=== PATIENT | male | born 1960 | race Caucasian/White ===

== ENCOUNTER 2018-09-05 06:58 | Emergency (ER) | payer BC ==
[2018-09-05 07:22] LABS: BASO % 0.4 % (0-6); EOS % 1.8 % (0-6); GRAN % 43.5 % (47-80); HEMATOCRIT 42.6 % (42.0-52.0); HEMOGLOBIN 15.5 gm/dl (14.0-18.0); LYMPH % 40.1 % (16-45); MEAN CELL VOLUME 100.7 fl (81-97); MEAN CORPUSCULAR HEMOGLOBIN 36.6 pg (27-33); MEAN CORPUSCULAR HGB CONC 36.4 g/dl (32-36); MEAN PLATELET VOLUME 9.1 fl (7.4-10.4); MONO % 14.2 % (0-9); PLATELET COUNT 197 K/uL (130-400); RED BLOOD COUNT 4.23 M/uL (4.40-5.70); RED CELL DISTRIBUTION WIDTH 12.1 % (11.5-14.5); WHITE BLOOD COUNT W/O DIFF 6.7 K/uL (4.2-12.2)
[2018-09-05 07:23] LABS: BLOOD UREA NITROGEN 5 mg/dL (6-20); CREATININE 0.8 mg/dL (0.7-1.2); EST GLOMERULAR FILTRATION RATE > 60 mL/min
[2018-09-05 07:24] LABS: TOTAL PROTEIN 7.4 g/dL (6.6-8.7)
[2018-09-05 07:25] LABS: INR 1.1; PARTIAL THROMBOPLASTIN TIME 27.1 SECONDS (24.5-39.1); PROTHROMBIN TIME (PATIENT) 10.8 SECONDS (9.5-12.1)
[2018-09-05 07:26] LABS: GLUCOSE,RANDOM 108 mg/dL (74-109)
[2018-09-05 07:29] LABS: ALB/GLOB RATIO 1.3 (1.1-1.8); ALBUMIN 4.2 g/dL (4.0-5.0); ALKALINE PHOSPHATASE 64 U/L (40-129); ALT/SGPT 59 U/L (<41); AST/SGOT 60 U/L (10.0-50.0)
--- NOTE | 2018-09-05 07:34 | Emergency Department Record ---
History of Present Illness - General Chief complaint: Fatigue and Weakness Stated complaint: "THINKS HE HAD A STROKE" Time Seen by Provider: 09/05/18 07:01 Source: Patient, Family Mode of Arrival: Ambulatory Limitations: No limitations - History of Present Illness Initial comments: 57 yo male presents feeling tired and weak since Wednesday. He and his present with concerns that he is sleeping more, tired, intermittent headache with left ear pain. His left ear has drainage for months. No current headache. The headache seems to occur with coughing. No fever, chills, nausea , vomiting, changes in appetite, dizziness, vision changes, speech changes, coordination changes, or confusion. He has had a few episodes where he had trouble recalling people's names (non family, non close relationships) and had to look on Facebook. No nausea, vomiting, diarrhea. No chest pain or shortness of breath. He and his were concerned because he is usually very active and energetic. Sleeping more and being fatigued are unusual. No expressive or receptive aphasia symptoms. The has not witnessed speech, vision, coordination, verbal expression, confusion issues). He has had chronic left ear drainage for years and a rash in upper glutteal fold for years. No PCP anytime in his lifetime. Additionally, he states he has a job that is very stressful currently and overwhelming at times. He feels a lot of his symptoms would resolve if he could just "chill out for a while" and relax. Complaint: Generalized weakness Onset/Timin -: Days(s) Location: Generalized Severity: Mild Consistency: Intermittent Improves with: None Worsens with: None Context: Other (Stress) Associated Symptoms: Headaches - Hubertus Coma Scale Eye Response: (4) Open spontaneously Motor Response: (6) Obeys commands Verbal Response: (5) Oriented Hubertus Total: 15 - Symptoms of Stroke Onset of Symptoms Date: 09/02/18 Symptoms of stroke: Unable to Think Clearly - Related Data Home Medications Medication Instructions Recorded Confirmed Last Taken No Home Med [NO HOME MEDS] 09/05/18 09/05/18 Unknown Allergies Allergy/AdvReac Type Severity Reaction Status Date / Time No Known Drug Allergies Allergy Verified 09/05/18 07:05 Travel Screening - Travel/Exposure Within Last 30 Days Have you traveled within the last 30 days?: No Review of Systems Constitutional: Reports: As per HPI, Malaise, Weakness. Denies: Chills, Fever Eyes: Denies: Eye discharge, Eye pain, Photophobia, Vision change ENT: Reports: As per HPI, Ear pain (Left). Denies: Congestion, Dental pain, Epistaxis, Throat pain Respiratory: Denies: Cough, Dyspnea, Hemoptysis, Stridor, Wheezes Cardiovascular: Denies: Chest pain, Edema, Palpitations, Syncope Endocrine: Reports: As per HPI, Fatigue. Denies: Polydipsia, Polyuria Gastrointestinal: Denies: Abdominal pain, Constipation, Diarrhea, Hematemesis, Nausea, Vomiting Genitourinary: Denies: Discharge, Dysuria, Frequency, Hematuria Musculoskeletal: Denies: Arthralgia, Back pain, Joint swelling, Myalgia, Neck pain Skin: Reports: As per HPI, Rash. Denies: Bruising, Change in color Neurological: Reports: Headache (intermittent), Weakness (generalized). Denies : Abnormal gait, Confusion, Numbness, Paresthesias, Seizure, Tingling, Tremors, Vertigo Psychiatric: Reports: Anxiety (Very stressed about his job). Denies: Depression Hematological/Lymphatic: Denies: Anemia, Blood Clots, Easy bleeding, Easy bruising, Swollen glands Past Medical History - SOCIAL HISTORY Smoking Status: Current every day smoker Alcohol Use: None Drug Use: None - RESPIRATORY Hx Respiratory Disorders: No - CARDIOVASCULAR Hx Cardio Disorders: No - NEURO Hx Neuro Disorders: No - GI Hx GI Disorders: No - Hx Genitourinary Disorders: No - ENDOCRINE Hx Endocrine Disorders: No - MUSCULOSKELETAL Hx Musculoskeletal Disorders: No - PSYCH Hx Psych Problems: No - HEMATOLOGY/ONCOLOGY Hx Hematology/Oncology Disorders: No Family Medical History Any Significant Family History?: No Physical Exam - General General Appearance: Alert, Oriented x3, Cooperative, No acute distress, Other ( Well appearing) Limitations: No limitations - Head Head exam: Atraumatic, Normocephalic, Normal inspection Head exam detail: negative: Abrasion, Contusion, Hematoma - Eye Eye exam: Normal appearance, PERRL, EOMI. negative: Conjunctival injection, Nystagmus, Periorbital swelling, Scleral icterus - ENT ENT exam: Normal exam, Mucous membranes moist, TM's normal bilaterally (Left TM with eythema with obscurring of landmarks, mild canal erythema, yellow drainage in the canal). negative: Mucous membranes dry, Normal orophraynx Ear exam: External canal tenderness. negative: Normal external inspection, Auricular hematoma, Auricular trauma Nasal Exam: Normal inspection Mouth exam: Normal external inspection Teeth exam: Normal inspection Throat exam: Normal inspection. negative: Tonsillar erythema, Tonsillomegaly, Tonsillar exudate, R peritonsillar mass, L peritonsillar mass - Neck Neck exam: Normal inspection, Full ROM. negative: Lymphadenopathy, Meningismus , Tenderness - Respiratory Respiratory exam: Normal lung sounds bilaterally. negative: Accessory muscle use, Decreased breath sounds, Prolonged expiratory, Respiratory distress, Rhonchi, Stridor, Wheezes - Cardiovascular Cardiovascular Exam: Regular rate, Normal rhythm, Normal heart sounds Peripheral Pulses: 2+: Radial (R), Radial (L) - GI/Abdominal GI/Abdominal exam: Soft. negative: Tenderness - Rectal Rectal exam: Deferred - exam: Deferred - Extremities Extremities exam: Normal inspection. negative: Tenderness - Back Back exam: Denies: CVA tenderness (R), CVA tenderness (L) - Neurological Neurological exam: Alert, CN II-XII intact, Normal gait, Oriented X3, Reflexes normal, Other (No PND, normal FTN, no Ataxia, Clear speech, no expressive or receptive aphasia, Normal memory to three items at 10 minutes). negative: Abnormal gait, Altered, Motor sensory deficit - Psychiatric Psychiatric exam: Normal affect, Normal mood. negative: Agitated, Depressed, Flat affect, Homicidal ideation, Manic, Suicidal ideation - Skin Skin exam: Dry, Intact, Rash (glutteal fold, thickened scaley, erythematous), Warm Stroke Assessment - NIH Stroke Scale 1a. Level of Consciousness: (0) Alert 1b. LOC Questions: (0) Answers Correctly 1c. LOC Commands: (0) Performs Tasks Correctly 2. Best Gaze: (0) Normal 3. Visual: (0) No Visual Loss 4. Facial Palsy: (0) Normal Symmetrical Movement 5a. Motor Arm Left: (0) No Drift 5b. Motor Arm Right: (0) No Drift 6a. Motor Leg Left: (0) No Drift 6b. Motor Leg Right: (0) No Drift 7. Limb Ataxia: (0) Absent 8. Sensory: (0) Normal 9. Best Language: (0) No Aphasia 10. Dysarthria: (0) Normal 11. Extinction/Inattention: (0) No Abnormality NIH Stoke Scale Total: 0 Course Vital Signs 09/05/18 07:03 Temperature 97.8 F Pulse Rate [ 94 H 3D Animator ] Respiratory 20 Rate Blood Pressure 152/107 [Right Arm] Pulse Ox 97 - Reevaluation(s) Reevaluation #1: EKG #1: 06:01 Rate: 87 Rhythm: sinus Kemp: L Intervals: normal ST segments: normal Prior: none NIH 0 The initial symptoms do not suggest acute stroke. His symptoms are general weakness, fatigue, tired, sleeping more. He is generally an active and energetic person. HCT and labs ordered. 09/05/18 07:44 09/05/18 08:00 No significant changes on the CBC,CMP,Troponin 09/05/18 08:25 [facility] Call Contacted to discussed the case and transfer (Neurosugery, ENT) 09/05/18 09:00 I SHANNAN Beltrán Neurosurgery and Dr Rosen of ENT. Both agree with initiation of antibiotics now and transfer ED to ED for further evaluation. Dr Lee or the ED accepts the patient for transfer. A culture of the ear fluid was obtained. 09/05/18 09:53 EMS dispatch was called again to enquire regarding delays in transfer. No changes in the patient condition. He is comfortable, no pain, at baseline. Medical Decision Making - Lab Data Result diagrams: 09/05/18 07:08 09/05/18 07:08 Disposition Disposition: Transfer Clinical Impression: Intracranial abscess Mastoiditis Qualifiers: Laterality: left Qualified Code(s): H70.92 - Unspecified mastoiditis, left ear Otitis media Qualifiers: Otitis media type: unspecified Chronicity: chronic Qualified Code(s): H66.90 - Otitis media, unspecified, unspecified ear Disposition: Acute Care Hospital Transfer Transfer To: [facility] Reason For Transfer: Intracranial abscess due to OM, Mastoiditis Accepting Physician: Jesus Time Discussed w/Accepting Physician: 09:05 Condition: (3) Guarded Forms: Patient Portal Access Time of Disposition: 08:45 Quality - Quality Measures Quality Measures: N/A - Blood Pressure Screening Does Patient Have Any of the Following: No Blood Pressure Classification: Hypertensive Reading Systolic Measurement: 139 Diastolic Measurement: 93 Screening for High Blood Pressure: < Pre-Hypertensive BP, F/U Documented > [ [id number]] Pre-Hypertensive Follow-up Interventions: Referral to alternative/primary care provider.
[2018-09-05] MEDS: PIPERACILLIN SODIUM/TAZOBACTAM 4.5 GM in 0.9 % SODIUM CHLORIDE 100ML 100 ML IVPB ONE (09:07)
[2018-09-05] MEDS: VANCOMYCIN HCL 1,500 MG in 0.9 % SODIUM CHLORIDE 500ML 500 ML IVPB ONE (09:32)
[2018-09-05 09:43] LABS: URINE APPEARANCE CLEAR; URINE BILIRUBIN NEGATIVE (NEGATIVE); URINE BLOOD NEGATIVE (NEGATIVE); URINE COLOR YELLOW; URINE GLUCOSE (UA) NEGATIVE (NEGATIVE); URINE KETONE TRACE (NEGATIVE); URINE LEUKOCYTE ESTERASE NEGATIVE (NEGATIVE); URINE NITRITE NEGATIVE (NEGATIVE); URINE PROTEIN NEGATIVE (NEGATIVE); URINE UROBILINOGEN 0.2 E.U./dL (0.20 - 1.00)
--- NOTE | 2018-09-07 19:00 | CT SCAN REPORT ---
DATE: 09/05/2018 at 0741. EXAM: CT OF THE BRAIN WITHOUT CONTRAST. HISTORY: Left posterior headache with decreased hearing for four days. TECHNIQUE: Thin-collimation helical CT examination of the brain is performed without intravenous contrast. COMPARISON: None. FINDINGS: There is complete opacification of the left external auditory canal and middle-ear cavity, as well as opacification of the small number of mastoid air cells that are present. There is sclerosis of the left mastoid/temporal bone. This may relate to chronic inflammation. There is apparent gas fluid collection contiguous with the roof of the left temporal bone measuring 1.6 x 1.8 x 1.6 cm. This appears to have a thin wall. There is moderate edema throughout the surrounding left temporal lobe. This edema, including the gas fluid collection, measures 7.4 x 2.7 x 3.8 cm. There is associated effacement/ partial effacement of the peripheral subarachnoid spaces. No evidence of trans- uncal herniation at this time. No other area of abnormality increased or decreased attenuation is noted throughout the brain substance. No other abnormal extra-axial fluid collection is seen. The visualized paranasal sinuses and right mastoid air cells are clear. Evaluation of the middle ear ossicles is limited. The orbits as visualized are unremarkable. IMPRESSION: 1. LEFT OTITIS MEDIA AND MASTOIDITIS WITH PROBABLE DEHISCENCE OF THE TEMPORAL BONE ROOF WITH CONTIGUOUS ABSCESS MEASURING 1.6 X 1.8 X 1.6 CM. THIS ABSCESS IS LIKELY EXTRA-AXIAL, THOUGH INTRA-AXIAL INVOLVEMENT CANNOT BE ENTIRELY EXCLUDED. THERE IS MODERATE SURROUNDING TEMPORAL LOBE EDEMA. 2. OPACIFICATION OF THE LEFT EXTERNAL AUDITORY CANAL, ALSO LIKELY INFLAMMATORY. JOB NUMBER: [id number]
== END 2018-09-05 10:15 | disposition short-term general hospital (02) ==
LOC: ER 06:58
DX: G06.0 Intracranial abscess and granuloma (principal); H70.92 Unspecified mastoiditis, left ear; H66.92 Otitis media, unspecified, left ear; R51 Headache; R53.83 Other fatigue; F17.210 Nicotine dependence, cigarettes, uncomplicated
CPT/HCPCS: 99285 ×2; 96365; 96366; 96368; 85025; 85730; 85610; 86140; 80053; 81003; 84443; 84484; 70450; 93005; 93010; J3370; J2543; J7040